=== PATIENT | female | born 1995 | race Caucasian/White ===

== ENCOUNTER 2017-02-21 20:27 | Emergency (ER) | payer MEDICAID ==
[~2017-02-21] VITALS: Ht 160 cm; Wt 73.7 kg
[2017-02-21 21:40] LABS: HEMATOCRIT 41.4 % (34.6-47.8); HEMOGLOBIN 14.1 g/dL (11.7-16.4); WHITE BLOOD COUNT 10.7 x10^3/uL (3.4-10)
[2017-02-21 21:53] LABS: BLOOD UREA NITROGEN 14 mg/dL (7-18)
[2017-02-21 23:08] VITALS: BP 110/68
== END 2017-02-21 23:11 | disposition home or self-care (01) ==
LOC: ED 21:54
DX: O03.9 Complete or unspecified spontaneous abortion without complication (principal); Z3A.01 Less than 8 weeks gestation of pregnancy
CPT/HCPCS: 36415; 76805; 80048; 81001; 82040; 84702; 85025; 86901; 99285

== ENCOUNTER 2017-02-23 13:03 | Emergency (ER) | payer MEDICAID ==
[~2017-02-23] VITALS: Ht 160 cm; Wt 72.3 kg
[2017-02-23 14:02] LABS: HEMATOCRIT 41.6 % (34.6-47.8)
[2017-02-23 14:14] LABS: BLOOD UREA NITROGEN 8 mg/dL (7-18)
[2017-02-23 18:41] VITALS: BP 116/72
== END 2017-02-23 18:45 | disposition home or self-care (01) ==
LOC: ED 14:39
DX: O03.4 Incomplete spontaneous abortion without complication (principal); Z90.49 Acquired absence of other specified parts of digestive tract
CPT/HCPCS: 36415; 76801; 80048; 82040; 84702; 85025; 99285

== ENCOUNTER 2017-02-25 17:06 | Emergency (ER) | payer MEDICAID ==
[~2017-02-25] VITALS: Ht 160 cm; Wt 73.3 kg
[2017-02-25 20:27] LABS: HEMATOCRIT 40.2 % (34.6-47.8); HEMOGLOBIN 13.5 g/dL (11.7-16.4); WHITE BLOOD COUNT 8.8 x10^3/uL (3.4-10)
[2017-02-25 22:12] LABS: ASPARTATE AMINO TRANSFERASE 19 U/L (15-37); BLOOD UREA NITROGEN 15 mg/dL (7-18)
[2017-02-25] MEDS ORDERED: METHOTREXATE IM ONE (23:00)
[2017-02-25 23:31] VITALS: BP 109/71
== END 2017-02-25 23:32 | disposition home or self-care (01) ==
LOC: ED 20:24
DX: O00.90 Unspecified ectopic pregnancy without intrauterine pregnancy (principal)
CPT/HCPCS: 36415; 76856; 80053; 82248; 84702; 85025; 96372; 99285; J9250

== ENCOUNTER 2017-03-01 17:52 | Emergency (ER) | payer MEDICAID ==
[~2017-03-01] VITALS: Ht 160 cm; Wt 72.6 kg
[2017-03-01 18:08] VITALS: BP 102/66
== END 2017-03-01 18:45 | disposition home or self-care (01) ==
LOC: ED 18:39
DX: O00.90 Unspecified ectopic pregnancy without intrauterine pregnancy (principal); Z90.49 Acquired absence of other specified parts of digestive tract
CPT/HCPCS: 36415; 84702; 99283

== ENCOUNTER 2017-06-24 05:04 | Emergency (ER) | payer MEDICAID ==
[~2017-06-24] VITALS: Ht 162.6 cm; Wt 73.6 kg
[2017-06-24] MEDS ORDERED: SODIUM CHLORIDE 0.9% 1,000 ML IV ONE (05:22)
[2017-06-24] MEDS ORDERED: ONDANSETRON 2MG/ML, 2ML IVPush ONE (05:30)
[2017-06-24] MEDS ORDERED: DICYCLOMINE 10 MG/ML, 2ML IM ONE (05:30)
[2017-06-24] MEDS ORDERED: SODIUM CHLORIDE 0.9% 1,000ML IVBOLUS ONE (05:30)
[2017-06-24] MEDS ORDERED: SODIUM CHLORIDE FLUSH 10ML SYR IVF ONE (05:30)
[2017-06-24] MEDS ORDERED: ONDANSETRON 2MG/ML, 2ML ONE (05:38)
[2017-06-24] MEDS ORDERED: DICYCLOMINE 10 MG/ML, 2ML ONE (05:38)
[2017-06-24 05:59] LABS: CHLORIDE 103 mmol/L (98-107)
[2017-06-24 06:00] LABS: ALANINE AMINOTRANSFERASE 24 U/L (12-78); ALBUMIN 3.7 g/dL (3.4-5.0); ANION GAP 9 mmol/L (5-15); CALCIUM 8.2 mg/dL (8.5-10.1); CREATININE 0.86 mg/dL (0.55-1.02)
[2017-06-24 06:04] LABS: ALKALINE PHOSPHATASE 85 U/L (45-117); BILIRUBIN,TOTAL 0.6 mg/dL (0.2-1.0); TOTAL PROTEIN 7.8 g/dL (6.4-8.2)
[2017-06-24 06:08] LABS: BASOPHILS # (AUTO) 0.04 x10^3/uL (0-0.1); BASOPHILS % (AUTO) 0 % (0-1); EOSINOPHILS % (AUTO) 0 % (1-7); LYMPHOCYTES % (AUTO) 9 % (22-44); MD NO; MEAN CORPUSCULAR HGB CONC 34.6 g/dL (32.4-35.8); MEAN CORPUSCULAR VOLUME 83.7 fL (80-100); MEAN PLATELET VOLUME 8.7 fL (7.4-10.4); MONOCYTES % (AUTO) 4 % (2-9); NEUTROPHILS # (AUTO) 11.67 x10^3/uL (1.8-6.8); NEUTROPHILS % (AUTO) 87 % (42-75); PLATELET COUNT 291 x10^3/uL (130-400); RED BLOOD COUNT 4.82 x10^6/uL (3.82-5.3); RED CELL DISTRIBUTION WIDTH 14.1 % (9.6-15.2)
[2017-06-24 07:36] LABS: MICROSCOPIC NOT IND
[2017-06-24 07:47] LABS: CULTURE INDICATED? NO
[2017-06-24] MEDS ORDERED: OMNIPAQUE 350 MG/ML, 100ML BOTTLE ONE (08:23)
[2017-06-24] MEDS ORDERED: HYDROmorphone 1 MG/ML, 1ML IV ONE (09:00)
[2017-06-24] MEDS ORDERED: CIPROFLOXACIN/PMX 400MG/200ML 200 ML IV ONE (09:00)
[2017-06-24] MEDS ORDERED: HYDROmorphone 2 MG/ML, 1ML IV ONE (09:00)
[2017-06-24] MEDS ORDERED: METRONIDAZOLE PMX 500MG/100ML 100 ML IV ONE (09:00)
[2017-06-24] MEDS ORDERED: METRONIDAZOLE PMX 500MG/100ML 100 ML ONE (09:08)
[2017-06-24] MEDS ORDERED: CIPROFLOXACIN/PMX 400MG/200ML 200 ML ONE (09:08)
[2017-06-24] MEDS ORDERED: HYDROmorphone 2 MG/ML, 1ML ONE (09:09)
[2017-06-24 09:41] LABS: CLOSTRIDIUM DIFFICILE ANTIGEN NEGATIVE; CLOSTRIDIUM DIFFICILE TOXIN NEGATIVE (Negative)
[2017-06-24] MEDS ORDERED: DIPHENOXYLATE/ATROPINE TABLET PO ONE (10:30)
[2017-06-24 11:25] VITALS: BP 106/74
== END 2017-06-24 11:30 | disposition home or self-care (01) ==
LOC: ED 05:51
DX: K52.89 Other specified noninfective gastroenteritis and colitis (principal); F17.200 Nicotine dependence, unspecified, uncomplicated; A09 Infectious gastroenteritis and colitis, unspecified
CPT/HCPCS: 36415; 74021; 74177; 80053; 81003; 83690; 84703; 85025; 87324; 89055; 96361; 96365; 96372; 96375; 99285; J0500; J0744; J1170; J2405; J7030; Q9967

== ENCOUNTER 2017-11-15 22:00 | Emergency (ER) | payer MEDICAID ==
[~2017-11-15] VITALS: Ht 167.6 cm; Wt 81.1 kg
[2017-11-15 23:20] LABS: MICROSCOPIC NOT IND
[2017-11-15 23:30] LABS: BASOPHILS # (AUTO) 0.05 x10^3/uL (0-0.1); BASOPHILS % (AUTO) 0 % (0-1); EOSINOPHILS # (AUTO) 0.24 x10^3/uL (0-0.4); EOSINOPHILS % (AUTO) 2 % (1-7); LYMPHOCYTES # (AUTO) 3.29 x10^3/uL (1-3.4); LYMPHOCYTES % (AUTO) 29 % (22-44); MD NO; MEAN CORPUSCULAR HEMOGLOBIN 29.5 pg (27.0-34.8); MEAN CORPUSCULAR HGB CONC 33.9 g/dL (32.4-35.8); MEAN CORPUSCULAR VOLUME 87.2 fL (80-100); MEAN PLATELET VOLUME 8.5 fL (7.4-10.4); MONOCYTES # (AUTO) 0.58 x10^3/uL (0.2-0.8); MONOCYTES % (AUTO) 5 % (2-9); NEUTROPHILS # (AUTO) 7.33 x10^3/uL (1.8-6.8); NEUTROPHILS % (AUTO) 64 % (42-75); PLATELET COUNT 294 x10^3/uL (130-400); RED BLOOD COUNT 4.42 x10^6/uL (3.82-5.3)
[2017-11-15 23:31] LABS: CULTURE INDICATED? NO
[2017-11-15 23:40] LABS: ALANINE AMINOTRANSFERASE 23 U/L (12-78); ALBUMIN 3.1 g/dL (3.4-5.0); ANION GAP 5 mmol/L (5-15); CALCIUM 8.1 mg/dL (8.5-10.1); CHLORIDE 112 mmol/L (98-107); CREATININE 0.68 mg/dL (0.55-1.02)
[2017-11-15 23:44] LABS: ALKALINE PHOSPHATASE 93 U/L (45-117); BILIRUBIN,TOTAL 0.2 mg/dL (0.2-1.0); TOTAL PROTEIN 6.3 g/dL (6.4-8.2)
[2017-11-16 01:25] LABS: CLUE CELLS NONE SEEN (NONE SEEN); WET PREP WBCS FEW (FEW)
[2017-11-16] MEDS ORDERED: OMNIPAQUE 350 MG/ML, 100ML BOTTLE ONE (02:03)
[2017-11-16 02:22] VITALS: BP 117/77
== END 2017-11-16 02:24 | disposition home or self-care (01) ==
LOC: ED 23:59
DX: R10.2 Pelvic and perineal pain (principal); R11.0 Nausea; Z90.49 Acquired absence of other specified parts of digestive tract
CPT/HCPCS: 36415; 74177; 76830; 80053; 81003; 84703; 85025; 87210; 87491; 87591; 87808; 99285; Q9967